=== PATIENT | female | born 1960 | race Caucasian/White ===

== ENCOUNTER 2017-05-05 07:18 | Emergency (ER) ==
[2017-05-05 07:38] VITALS: BP 156/73; TEMP 99.8; BMI 20.6
--- NOTE | 2017-05-05 08:29 | DI ---
EXAM: PA and lateral views of the chest HISTORY: Cough. COMPARISON: Chest x-ray 02/06/[address] chest 02/20/2017 FINDINGS: The cardiomediastinal silhouette is normal. There is no pneumothorax or pleural effusion. There is no consolidation, nodule or mass. The osseous structures are unremarkable. IMPRESSION: No acute cardiopulmonary process
--- NOTE | 2017-05-05 09:06 | ED.PDOC ---
General ED Provider: Dr. VLADISLAV ZAMORA Chief Complaint: Respiratory Complaint Stated Complaint: flu like symptoms Time Seen by Physician: 07:19 ( in hospital with flu) Mode of Arrival: Walk-In Information Source: Patient Exam Limitations: No limitations Primary Care Provider: SULEMA DUMONT Referred to ED by: Other (seen with landy at all times ) Nursing and Triage Documentation Reviewed and Agree: Yes Reviewed sepsis parameters & appropriate labs ordered?: Yes System Inflammatory Response Syndrome: Not Applicable Sepsis Protocol: For patient's 13 years and over: Temp is 96.8 and below OR 101 and greater Pulse >90 BPM Resp >20/minute Acutely Altered Mental Status Are patient's symptoms suggestive of a new infection, such as: -Pneumonia -Skin, Soft Tissue -Endocarditis -UTI -Bone, Joint Infection -Implantable Device -Acute Abdominal Infection -Wound Infection -Meningitis -Blood Stream Catheter Infection -Unknown System Inflammatory Response Syndrome: Not Applicable Respiratory Complaint Exam - Respiratory Complaint/Exam Onset/Duration: 1 week Symptoms Are: Still present Timing: Intermittent Initial Severity: Mild Current Severity: Mild Location: Nose, Throat, Chest Character: Reports: Non-productive cough Aggravating: Reports: URI Alleviating: Reports: None Associated Signs and Symptoms: Reports: Fever, URI, Nasal congestion. Denies: Rapid breathing, Dyspnea, Chills, Chest pain, Pleuritic chest pain, Wheezing, Hemoptysis, Dizziness, Calf pain, Calf swelling, Edema, Hoarseness, Sinus discomfort, Vomiting, Sore throat, Weight loss, Decreased oral intake, Increased thirst, Increased appetite, Increased urination Related History: Reports: Similar episode History of Healthcare-Acquired Pneumonia: No Related Surgical History: Reports: None Pulmonary Embolism Risk Factors: Smoking Cardiac Risk Factors: Reports: Smoking Pseudomonas Risk Factors: Reports: None Tuberculosis Risk Factors: Reports: None Status Asthmaticus Risk Factors: Reports: None Home Oxygen Use: No Recent Stress Test: No Recent Echo/LV Function: No Current Antibiotic Use: No Current Asthma Medication Use: No Respiratory Distress: None Inadequate Respiratory Effort: No Dysphagia Present: No Stridor Present: No JVD Present: No Accessory Muscle Use: No Retractions: Not Present Diminished Breath Sounds: No Sinus Tenderness: None Grunting Respirations: No Kussmaul Respirations: No Differential Diagnoses: Pneumonia, Bronchitis, Lower Resp. Infection Non-Traumatic Chest Pain Syncope: EKG Performed Review of Systems - Review Of Systems Constitutional: Reports: Malaise Eyes: Reports: No symptoms Ears, Nose, Mouth, Throat: Reports: No symptoms Respiratory: Reports: Cough Cardiac: Reports: No symptoms GI: Reports: No symptoms : Reports: No symptoms Musculoskeletal: Reports: No symptoms Skin: Reports: No symptoms Neurological: Reports: No symptoms Endocrine: Reports: No symptoms Hematologic/Lymphatic: Reports: No symptoms All Other Systems: Reviewed and Negative Past Medical History - Past Medical History Previously Healthy: No Endocrine: Reports: None Cardiovascular: Reports: CAD, Hypertension Respiratory: Reports: None Hematological: Reports: None Gastrointestinal: Reports: None Genitourinary: Reports: None Neuro/Psych: Reports: None Musculoskeletal: Reports: None Cancer: Reports: None Last Menstrual Period: hysterectomy - Surgical History General Surgical History: Reports: None - Family History Family History: Reports: None - Social History Smoking Status: Current every day smoker, Light tobacco smoker Hx Substance Use: No Alcohol Screening: None Physical Exam - Physical Exam Appearance: Ill-appearing Ill-appearing: Mild Pain Distress: Mild Eyes: JODY, EOMI, Conjunctiva clear ENT: Ears normal, Nose normal, Oropharynx normal Respiratory: Rhonchi Cardiovascular: RRR, Pulses normal, No rub, No murmur GI/: Soft, Nontender, No masses, Bowel sounds normal, No Organomegaly Musculoskeletal: Normal strength, ROM intact, No edema, No calf tenderness Skin: Warm, Dry, Normal color Neurological: Sensation intact, Motor intact, Reflexes intact, Cranial nerves intact, Alert, Oriented Psychiatric: Affect appropriate, Mood appropriate Critical Care Note - Critical Care Note Total Time (mins): 0 Course - Course Hematology/Chemistry: 05/05/17 08:10 05/05/17 08:10 Orders, Labs, Meds: Lab Review 05/05/17 05/05/17 05/05/17 07:40 08:10 08:10 WBC 11.62 H RBC 4.34 Hgb 14.3 Hct 40.2 MCV 92.6 MCH 32.9 H MCHC 35.6 H RDW Coeff of Angeline 13.2 Plt Count 133 L Immature Gran % (Auto) 0.3 Neut % (Auto) 69.9 Lymph % (Auto) 19.1 [place] % (Auto) 10.5 H Eos % (Auto) 0.0 Baso % (Auto) 0.2 Immature Gran # (Auto) 0.0 Neut # 8.1 H Lymph # 2.2 [place] # 1.2 Eos # 0.0 Baso # 0.0 Sodium 139 Potassium 3.6 Chloride 106 Carbon Dioxide 21 Anion Gap 15.6 BUN 13 Creatinine 0.63 Estimated GFR (MDRD) 98.00 BUN/Creatinine Ratio 20.63 Glucose 96 Calcium 9.2 Total Bilirubin 0.5 AST 15 ALT 16 Alkaline Phosphatase 57 Total Protein 7.5 Albumin 3.9 Globulin 3.6 Albumin/Globulin Ratio 1.08 Influenza A (Rapid) Negative by naat Influenza B (Rapid) Negative by naat Orders Category Date Time Status CBC W/ AUTO DIFF Stat LAB 05/05/17 08:10 Completed COMPREHENSIVE METABOLIC PANEL Stat LAB 05/05/17 08:10 Completed FLU A/B MOLECULAR Stat LAB 05/05/17 07:40 Completed MOLECULAR GROUP A STREP Stat LAB 05/05/17 07:40 Completed CHEST, 2 VIEWS PA & LAT Stat RADS 05/05/17 08:02 Completed Vital Signs: Temp Pulse Resp BP Pulse Ox 05/05/17 07:19 99.8 F H 78 22 156/73 H 95 Departure - Departure Time of Disposition: 09:07 Disposition: HOME SELF-CARE Discharge Problem: Bronchitis Instructions: Viral Syndrome (ED) Condition: Good Pt referred to PMD for follow-up: Yes IPMP verified?: Yes Prescriptions: Amoxicillin 500 mg PO Q8HR #21 tablet Allergies/Adverse Reactions: Allergies No Known Allergies Allergy (Verified 05/05/17 07:30) Home Medications: Ambulatory Orders Albuterol Sulfate [Proair Hfa] 90 mcg IH ONCE 08/18/15 Amlodipine Besylate 5 mg PO DAILY 08/18/15 Clopidogrel Bisulfate [Plavix] 75 mg PO DAILY 08/18/15 Nitroglycerin [Nitrostat] 0.4 mg SL DIRECTED PRN 08/18/15 Tramadol HCl 50 mg PO BID 08/18/15 Amlodipine Besylate [Norvasc] 5 mg PO DAILY 05/05/17 Amoxicillin 500 mg PO Q8HR #21 tablet 05/05/17 Atorvastatin Calcium [Lipitor] 40 mg PO BEDTIME 05/05/17 Glycopyrrolate/Formoterol Fum [Bevespi Aerosphere Inhaler] 2 puff IH BID Ranolazine [Ranexa] 500 mg PO BEDTIME 05/05/17 Rivaroxaban [Xarelto] 20 mg PO DAILY 05/05/17
== END 2017-05-05 09:40 | disposition home or self-care (01) ==
LOC: ED 07:18
DX: J40 Bronchitis, not specified as acute or chronic (principal); F17.210 Nicotine dependence, cigarettes, uncomplicated; I10 Essential (primary) hypertension; I25.10 Atherosclerotic heart disease of native coronary artery without angina pectoris
CPT/HCPCS: 36415; 80053; 85025; 87502; 87651; 96372; 99283